=== PATIENT | female | born 1980 | race Caucasian/White ===

== ENCOUNTER 2018-10-09 05:21 | Emergency (ER) | payer OTHER ==
[~2018-10-09] VITALS: Ht 157.5 cm; Wt 64.9 kg
[2018-10-09 05:31] VITALS: Ht 157.5 cm; Wt 64.9 kg
[2018-10-09 06:48] LABS: CALCIUM 8.3 mg/dL (8.5-10.1); CARBON DIOXIDE 18.2 mmol/L (21-32); CHLORIDE SERUM 107 mmol/L (98-107); CREATININE SERUM 0.9 mg/dL (0.6-1.0); GFR1 > 60 mL/min; GLUCOSE SERUM 90 mg/dL (74-106); POTASSIUM SERUM 4.6 mmol/L (3.5-5.1); SODIUM SERUM 137 mmol/L (136-145)
[2018-10-09 06:52] LABS: ALKALINE PHOSPHATASE 48 U/L (46-116); ALT/SGPT 19 U/L (14-59); AST/SGOT 12 U/L (15-37); BILIRUBIN TOTAL 0.29 mg/dL (0.20-1.00); LIPASE 89 IU/L (73-393); TOTAL PROTEIN, SERUM 6.5 g/dL (6.4-8.2)
[2018-10-09 06:54] LABS: ALBUMIN 2.5 g/dL (3.4-5.0)
[2018-10-09 07:03] LABS: BASOPHIL % 0.1 % (0-2); PLATELET COUNT 326 x10^3mcL (130-400); RED CELL DISTRIBUTION WIDTH 13.7 % (11.5-14.5)
[2018-10-09 11:40] VITALS: BP 102/63
== END 2018-10-09 11:40 | disposition home or self-care (01) ==
LOC: ED 05:21
PROVIDERS: Emergency Medicine
DX: N98.1 Hyperstimulation of ovaries (principal)
CPT/HCPCS: J1885; Q0162; Q9967